=== PATIENT | female | born 1960 | race Caucasian/White ===

== ENCOUNTER → 2023-08-28 11:37 | Outpatient (BNVA) | payer OTHER, SELFPAY | PROVIDERS: PCP Nurse Practitioner; Referring Provider Nurse Practitioner; Visit Provider Psychiatry & Neurology Neurology | DX: Z86.73 Personal history of transient ischemic attack (TIA), and cerebral infarction without residual deficits (principal); I10 Essential (primary) hypertension; G25.0 Essential tremor; I63.9 Cerebral infarction, unspecified; G40.909 Epilepsy, unspecified, not intractable, without status epilepticus; E55.9 Vitamin D deficiency, unspecified; D68.59 Other primary thrombophilia | CPT/HCPCS: 36415; 81241; 82306; 82607; 82746; 83090; 83735; 83921; 84439; 84443; 84481; 85210; 85303; 85306; 85613; 85730; 86146; 86147; 99203 ==

== ENCOUNTER 2023-09-03 14:46 | Outpatient (CLI) | payer OTHER, SELFPAY ==
--- NOTE | 2023-09-03 15:00 | USCV_ITS ---
MIO GARCIA Age: 63 Gender: F : 1960 Exam Date: 09/03/2023 14:51 Ordering Phys: Fady Redding MD Technologist: R Exam Location: [facility] – [place] Indication: cca disease Risk Factors: Previous Vascular Surgery: Right Brachial BP: / Left Brachial BP: / Right Left Velocity (cm/s) Spectral Plaque Velocity (cm/s) Spectral Plaque Syst/Diast Broadening Syst/Diast Broadening 68.30/ 22.00 Prox CCA 94.70 / 36.30 81.20/ 26.00 Mid CCA 103.50/ 34.40 67.10/ 27.00 Hetro Distal CCA 108.00/ 37.70 Hetro 57.10/ 22.60 Hetro Prox ICA 69.90 / 33.10 Hetro 76.20/ 29.90 Mid ICA 108.80/ 44.30 74.40/ 34.00 Distal ICA 75.40 / 33.10 102.90 ECA 103.10 1.10 ICA/CCA 1.00 Antegrade Vertebral Antegrade 52.80/ 16.20 cm/s 79.20/ 30.50 cm/s Tri Subclavian Tri 121.0 136.1 0 0 FINDINGS Comparison: none available. No significant elevation of systolic or diastolic velocities. Diffuse, mild bilateral scattered calcified plaque and intimal thickening throughout the common carotid arteries and extending through the bifurcation. Antegrade vertebral arteries. CONCLUSIONS Bilateral ICA stenosis less than 50%. Mild carotid atherosclerosis. Dr. Anastacia Lopez DO (Electronically Signed) Final Date: 04 Sep 2023 07:05 S
== END 2023-09-03 14:47 | disposition home or self-care (01) ==
LOC: RAD 14:46
PROVIDERS: PCP Nurse Practitioner; Visit Provider Psychiatry & Neurology Neurology
DX: I10 Essential (primary) hypertension (principal); I65.23 Occlusion and stenosis of bilateral carotid arteries
CPT/HCPCS: 93880

== ENCOUNTER → 2024-01-14 14:05 | Outpatient (BNVA) | payer OTHER, SELFPAY | PROVIDERS: PCP Nurse Practitioner; Visit Provider Psychiatry & Neurology Neurology | DX: I10 Essential (primary) hypertension (principal); I63.9 Cerebral infarction, unspecified; G40.909 Epilepsy, unspecified, not intractable, without status epilepticus; R29.90 Unspecified symptoms and signs involving the nervous system; G25.0 Essential tremor | CPT/HCPCS: 99212; 99213 ==

== ENCOUNTER 2024-02-15 08:12 | Outpatient (CLI) | payer OTHER, SELFPAY ==
--- NOTE | 2024-02-15 08:16 | USCV_ITS ---
MIO GARCIA Age: 63 Gender: F : 1960 Exam Date: 02/15/2024 08:42 Ordering Phys: Fady Redding MD Technologist: Slade Whittaker Exam Location: [facility] Indication: hypertension BP: 142 / 87 HR: Rhythm: Sinus Technical Quality: Adequate MEASUREMENTS (Male / Female) Normal Values 2D ECHO LV Diastolic Diameter PLAX 4.1 cm 4.2 - 5.9 / 3.9 - 5.3 cm IVS Diastolic Thickness 0.7 cm 0.6 - 1.0 / 0.6 - 0.9 cm IVS Systolic Thickness 1.1 cm LVPW Diastolic Thickness 1.1 cm 0.6 - 1.0 / 0.6 - 0.9 cm LVPW Systolic Thickness 1.4 cm LVOT Diameter 1.8 cm LV Ejection Fraction 2D Teich 70.5 % LV Ejection Fraction MOD 4C 78.4 % LV Ejection Fraction MOD 2C 68.8 % LV Ejection Fraction 2C AL 69.4 % LA Diameter 3.1 cm RA Systolic Volume 4C AL 29.2 ml RA Systolic Volume 4C MOD 30.1 ml LA Sys Volume AL 31.6 cm cubed LA Sys Volume Index AL 22.3 cm cubed/m squared Aorta at Sinotubular Diameter 1.9 cm IVC Diameter 1.9 cm M-MODE LA Ao Ratio MM 1.7 AV Cusp Separation MM 1.8 cm FINDINGS Left Ventricle Normal left ventricular size and systolic function, EF 69%. Mild left ventricular hypertrophy. No regional wall motion abnormalities. Right Ventricle Normal right ventricular size and systolic function. Right Atrium Saline contrast injection revealed no evidence of any right-to- left shunt Left Atrium Normal size Mitral Valve No gross morphologic abnormalities noted Aortic Valve No gross morphologic abnormalities noted Tricuspid Valve No gross morphologic abnormalities noted Pulmonic Valve No gross morphologic abnormalities noted Pericardium Normal pericardium without effusion. Aorta Normal ascending aorta dimension. IVC Normal inferior vena cava. CONCLUSIONS Normal left ventricular size and systolic function, EF 69%. Mild left ventricular hypertrophy. No regional wall motion abnormalities. Normal cardiac chamber sizes. Saline contrast injection revealed no evidence of any right-to- left shunt No gross structural valvular abnormalities were noted There are no intracardiac masses. No similar previous studies are available for comparison Dr Capri Lott MD FAC (Electronically Signed) Final Date: 19 February 2024 09:33 S
== END 2024-02-15 08:13 | disposition home or self-care (01) ==
LOC: RAD 08:13
PROVIDERS: PCP Nurse Practitioner; Visit Provider Psychiatry & Neurology Neurology
DX: I10 Essential (primary) hypertension (principal)
CPT/HCPCS: C8924

== ENCOUNTER → 2024-04-09 13:37 | Outpatient (BNVA) | payer OTHER, SELFPAY | PROVIDERS: PCP Nurse Practitioner; Visit Provider Psychiatry & Neurology Neurology | DX: I10 Essential (primary) hypertension (principal); I63.9 Cerebral infarction, unspecified; G40.909 Epilepsy, unspecified, not intractable, without status epilepticus; R29.90 Unspecified symptoms and signs involving the nervous system; G25.0 Essential tremor | CPT/HCPCS: 99212; 99213 ==

== ENCOUNTER → 2024-08-12 13:01 | Outpatient (BNVA) | payer OTHER, SELFPAY | PROVIDERS: PCP Nurse Practitioner; Visit Provider Psychiatry & Neurology Neurology | DX: G25.0 Essential tremor (principal); I10 Essential (primary) hypertension; I63.9 Cerebral infarction, unspecified; G40.909 Epilepsy, unspecified, not intractable, without status epilepticus; R29.90 Unspecified symptoms and signs involving the nervous system | CPT/HCPCS: 99212 ==

== ENCOUNTER 2024-09-08 09:33 | Outpatient (CLI) | payer OTHER, SELFPAY ==
--- NOTE | 2024-09-08 09:41 | USCV_ITS ---
MIO GARCIA Age: 64 Gender: F : 1960 Exam Date: 09/08/2024 09:50 Ordering Phys: Emi Caba Technologist: MELYSSA [place]am Location[place] [facility] [place] Indication: calcfications visualized on x ray HISTORY: Diameter (cm) AP x Transverse x Length Velocity (cm/s) Waveform Prox Aorta: 1.65 x 1.58 x 27.20 Triphasic Mid Aorta: 0.74 x 0.79 x 145.10 Monophasic Distal Aorta: 0.78 x 0.76 x 109.00 Monophasic Right Iliac Prox: 0.43 x 0.56 x 123.60 Monophasic Left Iliac Prox: 0.58 x 0.53 x 110.20 Monophasic Stent Prox Landing x x Aneurysmal Sac Max x x Lt Lat Sac Dim Rt Lat Sac Dim Stent Dist Landing x x Right Iliac Stent x x Left Iliac Stent x x Right Renal Art Left Renal Art FINDINGS: Comparison: none available. No evidence of abdominal aortic aneurysm. Ectatic abdominal aorta with evidence of atherosclerotic plaque noted. There is no evidence of right common iliac artery stenosis. There is no evidence of left common iliac artery stenosis. CONCLUSIONS No AAA. Minmal aortic plaque. Dr. Anastacia Lopez DO (Electronically Signed) Final Date: 08 Sep 2024 11:47 S
== END 2024-09-08 09:34 | disposition home or self-care (01) ==
LOC: RAD 09:34
PROVIDERS: PCP Nurse Practitioner; Visit Provider Nurse Practitioner
DX: Z01.89 Encounter for other specified special examinations (principal); I77.811 Abdominal aortic ectasia
CPT/HCPCS: 76706